=== PATIENT | female | born 1970 | race Caucasian/White ===

== ENCOUNTER 2020-05-29 11:12 | Outpatient (REF) | payer MEDICAID, SELFPAY ==
--- NOTE | 2020-05-29 | US_ITS ---
EXAMINATION:US pelvic complete, US transvaginal CLINICAL INFORMATION: Reason for Exam PMB COMPARISON: No priors available. LMP: Postmenopausal bleeding FINDINGS: UTERUS: The uterus is anteverted. Size: 6.1 x 3.3 x 3.7 cm. Uterine mass: There is no uterine mass. Cervix: Large complex hypoechoic cystic structure seen in the cervix 4.1 x 3.4 x 5.5 cm, concerning for possible complex nabothian cyst versus endometrioma versus Luke's duct cyst. Versus other lesions. This may require further investigation with cross-sectional imaging. Endometrium: No ultrasound evidence of endometrial lesion. endometrial thickness measures 0.4 cm ADNEXA: Normal Right ovary: Normal in size. Left ovary: Normal in size. FREE FLUID: Trace amount of free fluid. OTHER FINDINGS: None IMPRESSION: Large complex hypoechoic cystic mass near or at the cervix concerning for complex nabothian cyst versus Luke cyst versus endometrioma versus other lesions, it measure up to 5.5 cm. Consider further investigation with cross-sectional imaging preferably MRI with IV contrast, if not performed would recommend follow-up ultrasound in 6-12 weeks.
== END 2020-05-29 11:13 | disposition home or self-care (01) ==
LOC: HO.US 11:12
PROVIDERS: PCP Advanced Practice Midwife; Visit Provider Advanced Practice Midwife
DX: N95.0 Postmenopausal bleeding (principal)
CPT/HCPCS: 76830; 76856

== ENCOUNTER 2020-09-30 08:37 | Outpatient (REF) | payer MEDICAID, SELFPAY | END 2020-09-30 08:38 | disposition home or self-care (01) | LOC: HO.HMGCX 08:37 | PROVIDERS: Visit Provider General Practice | DX: Z13.89 Encounter for screening for other disorder (principal) ==

== ENCOUNTER 2020-10-18 13:32 | Outpatient (REF) | payer MEDICAID, SELFPAY ==
--- NOTE | ~2020-10-18 | MM_ITS ---
EXAMINATION: MM SCREENING DIGITAL BREAST TOMOSYNTHESIS, BILATERAL CLINICAL INFORMATION: Screening. Asymptomatic. Age 50. No known family history breast cancer. The lifetime risk of breast cancer based on the Tyrer-Cuzick Model is 6%. COMPARISON: None. TECHNIQUE: Digital breast tomosynthesis is performed in both the craniocaudal and mediolateral oblique views along with computer-aided detection (CAD). Synthesized 2D images are generated from the tomosynthesis. FINDINGS: The breasts are almost entirely fatty (ACR BI-RADS breast composition Category a). Background stromal markings are normal. There are no significant masses, abnormal calcifications, or other abnormalities. The axilla and skin contours are unremarkable. MM/MM tomosynthesis screening BI IMPRESSION: No mammographic evidence of malignancy. ASSESSMENT: BI-RADS 1: Negative RECOMMENDATION: Routine annual mammography screening. This patient's information was entered into a reminder system with a target due date for their next mammogram.
== END 2020-10-18 13:33 | disposition home or self-care (01) ==
LOC: HO.MAMMO 13:32
PROVIDERS: PCP General Practice; Visit Provider General Practice
DX: Z12.31 Encounter for screening mammogram for malignant neoplasm of breast (principal)
CPT/HCPCS: 77063; 77067

== ENCOUNTER 2020-10-21 10:28 | Outpatient (REF) | payer MEDICAID, SELFPAY ==
--- NOTE | ~2020-10-21 | US_ITS ---
EXAMINATION: US PELVIS COMPLETE. CLINICAL INFORMATION: Cystic mass. Question nabothian cysts versus Luke's cyst COMPARISON: None TECHNIQUE: Transabdominal and transvaginal ultrasound of the pelvis is performed. FINDINGS: On transabdominal ultrasound, the uterus is retroverted and retroflexed. The endometrial thickness is 0.2 cm. No focal lesion seen. There are echogenic cysts seen in the cervical-vaginal canal. It measures 5.1 x 4.5 x 3.1 cm. Previously it measured 4.1 x 3.4 x 5.5 cm. The right ovary measures 1.6 x 1.2 x 1.0 cm and volume 1.0 mL. It appears unremarkable. Previously the right ovary measured 2.2 x 1.0 x 1.7 cm The left ovary measures 2.7 x 1.3 x 1.3 cm and volume 2.4 mL. It appears unremarkable. Previously the left ovary measured 2.9 x 1.3 x 1.8 cm. There is no free fluid in the cul-de-sac. US/US pelvic complete IMPRESSION: 1. Unremarkable uterus. 2. Large echogenic cyst at the cervical-vaginal canal likely a Luke cyst. A large nabothian cyst cannot be excluded. An ectopic endometrioma is not excluded either. Recommend clinical correlation.
--- NOTE | ~2020-10-21 | US_ITS ---
EXAMINATION: US PELVIS COMPLETE. CLINICAL INFORMATION: Cystic mass. Question nabothian cysts versus Luke's cyst COMPARISON: None TECHNIQUE: Transabdominal and transvaginal ultrasound of the pelvis is performed. FINDINGS: On transabdominal ultrasound, the uterus is retroverted and retroflexed. The endometrial thickness is 0.2 cm. No focal lesion seen. There are echogenic cysts seen in the cervical-vaginal canal. It measures 5.1 x 4.5 x 3.1 cm. Previously it measured 4.1 x 3.4 x 5.5 cm. The right ovary measures 1.6 x 1.2 x 1.0 cm and volume 1.0 mL. It appears unremarkable. Previously the right ovary measured 2.2 x 1.0 x 1.7 cm The left ovary measures 2.7 x 1.3 x 1.3 cm and volume 2.4 mL. It appears unremarkable. Previously the left ovary measured 2.9 x 1.3 x 1.8 cm. There is no free fluid in the cul-de-sac. US/US transvaginal IMPRESSION: 1. Unremarkable uterus. 2. Large echogenic cyst at the cervical-vaginal canal likely a Luke cyst. A large nabothian cyst cannot be excluded. An ectopic endometrioma is not excluded either. Recommend clinical correlation.
== END 2020-10-21 10:29 | disposition home or self-care (01) ==
LOC: HO.US 10:28
PROVIDERS: Visit Provider General Practice
DX: Q52.4 Other congenital malformations of vagina (principal)
CPT/HCPCS: 76830; 76856

== ENCOUNTER 2021-05-16 09:03 | Outpatient (REF) | payer MEDICAID, SELFPAY ==
--- NOTE | ~2021-05-16 | XR_ITS ---
EXAMINATION: XR SHOULDER, LEFT CLINICAL INFORMATION: Left shoulder pain. COMPARISON: None. TECHNIQUE: AP external rotation, Grashey, scapular Y, and axillary views of the left shoulder. FINDINGS: No acute fracture or dislocation. Moderate acromioclavicular joint space narrowing with marginal osteophytes. Small glenohumeral marginal osteophytes. On the posteroinferior aspect of the glenoid, there is a chronic-appearing ossification measuring 1.4 cm which could represent an unfused osteophyte versus remote fracture fragment. No osseous erosion. XR/XR shoulder LT min 2V IMPRESSION: Moderate acromioclavicular and mild glenohumeral osteoarthritis. Ossification adjacent to the posteroinferior glenoid, which could represent an unfused osteophyte versus remote fracture fragment.
== END 2021-05-16 09:04 | disposition home or self-care (01) ==
LOC: HO.XRAY 09:03
PROVIDERS: Absent Provider General Practice; PCP General Practice; Visit Provider Family Medicine
DX: M25.512 Pain in left shoulder (principal)
CPT/HCPCS: 73030

== ENCOUNTER 2021-10-07 12:49 | Outpatient (REF) | payer MEDICAID, SELFPAY ==
[2021-10-07 14:08] LABS: COVID-19 Test Negative (Negative)
== END 2021-10-07 12:50 | disposition home or self-care (01) ==
LOC: HO.LAB 12:49
PROVIDERS: Visit Provider Internal Medicine
DX: Z20.822 Contact with and (suspected) exposure to COVID-19 (principal)
CPT/HCPCS: 87635; C9803

== ENCOUNTER 2022-10-29 10:04 | Outpatient (REF) | payer MEDICAID, SELFPAY ==
--- NOTE | ~2022-10-29 | XR_ITS ---
EXAMINATION: XR LUMBOSACRAL SPINE CLINICAL INFORMATION: Back pain COMPARISON: 02/17/2020 TECHNIQUE: Three views of the lumbosacral spine. FINDINGS: There is anatomic alignment of the lumbar vertebral bodies and posterior elements. Vertebral body heights are maintained. There is intervertebral disc space narrowing at L4-L5 and L5-S1. No acute fracture is seen. Suspected facet arthropathy of the lower lumbar spine. Sacroiliac joints appear intact. Scattered calcifications along the aorta. XR/XR lumbar spine 2-3V IMPRESSION: No acute findings identified. Degenerative changes of the lower lumbar spine.
== END 2022-10-29 10:05 | disposition home or self-care (01) ==
LOC: HO.XRAY 10:04
PROVIDERS: PCP General Practice; Visit Provider Emergency Medicine
DX: M54.16 Radiculopathy, lumbar region (principal)
CPT/HCPCS: 72100

== ENCOUNTER → 2022-12-14 08:29 | Outpatient (BNVA) | payer MEDICAID, SELFPAY | PROVIDERS: PCP General Practice; Visit Provider Anesthesiology | DX: M19.012 Primary osteoarthritis, left shoulder (principal); M16.12 Unilateral primary osteoarthritis, left hip; M17.12 Unilateral primary osteoarthritis, left knee; G89.4 Chronic pain syndrome | CPT/HCPCS: 99202 ==

== ENCOUNTER 2023-01-05 06:14 | Outpatient (REF) | payer MEDICAID, SELFPAY ==
--- NOTE | ~2023-01-05 | FL_ITS ---
EXAMINATION: XR FLUOROSCOPY WITH IMAGES CLINICAL INFORMATION: M19.012 - Primary osteoarthritis, left shoulder. Pain management. COMPARISON: Radiographs left shoulder 05/16/2021 TECHNIQUE: Fluoroscopy Supervised By: Dr. Quinn Obregon. Fluoroscopy Time: 0.1 minutes. Cumulative Dose: 4.49 mGy. DAP: 1.34 Gycm2. Images: 1. FINDINGS: There is spinal needle overlying the superior aspect humeral head. There is contrast along the superior rotator cuff. No visible vascular communication. Degenerative changes are present at the acromioclavicular joint. FL/FL guidance in treatment room IMPRESSION: - Fluoroscopy for pain management procedure.
== END 2023-01-05 06:15 | disposition home or self-care (01) ==
LOC: CF 06:14
PROVIDERS: Visit Provider Anesthesiology
DX: M19.012 Primary osteoarthritis, left shoulder (principal); M16.12 Unilateral primary osteoarthritis, left hip; M17.12 Unilateral primary osteoarthritis, left knee; G89.4 Chronic pain syndrome
CPT/HCPCS: 20610; J3301

== ENCOUNTER → 2023-02-01 12:50 | Outpatient (BNVA) | payer MEDICAID, SELFPAY | PROVIDERS: PCP General Practice; Visit Provider Anesthesiology | DX: M19.012 Primary osteoarthritis, left shoulder (principal); M16.12 Unilateral primary osteoarthritis, left hip; M17.12 Unilateral primary osteoarthritis, left knee; G89.4 Chronic pain syndrome | CPT/HCPCS: 99212 ==

== ENCOUNTER 2023-03-04 10:58 | Outpatient (REF) | payer MEDICAID, SELFPAY | END 2023-03-04 10:59 | disposition home or self-care (01) | LOC: HO.HOSX 10:58 | PROVIDERS: Visit Provider Orthopaedic Surgery | DX: Z13.89 Encounter for screening for other disorder (principal) ==

== ENCOUNTER 2023-12-10 10:45 | Outpatient (REF) | payer MEDICAID, SELFPAY ==
[2023-12-13 10:49] LABS: TS Negative Control Passed; TS Panel A 0; TS Panel B 2; TS Positive Control Passed; TSpotTB Negative (Negative)
== END 2023-12-10 10:46 | disposition home or self-care (01) ==
LOC: HO.HHCL 10:45
PROVIDERS: Visit Provider General Practice
DX: Z11.1 Encounter for screening for respiratory tuberculosis (principal)
CPT/HCPCS: 36415; 86481

== ENCOUNTER 2024-01-18 09:25 | Outpatient (REF) | payer MEDICAID, SELFPAY ==
--- NOTE | ~2024-01-18 | XR_ITS ---
EXAMINATION: XR FOOT, LEFT CLINICAL INFORMATION: Left heel pain x1 month. COMPARISON: None available. TECHNIQUE: AP, lateral, and oblique views of the left foot. FINDINGS: There is normal alignment. Joint spaces are maintained. No displaced fracture or dislocation. No bony erosions. No focal radiographic soft tissue swelling. Minimal Achilles enthesopathy. XR/XR foot LT min 3V IMPRESSION: No acute abnormality.
== END 2024-01-18 09:26 | disposition home or self-care (01) ==
LOC: HO.HHCX 09:25
PROVIDERS: Visit Provider General Practice
DX: M79.672 Pain in left foot (principal); G89.29 Other chronic pain
CPT/HCPCS: 73630

== ENCOUNTER 2024-12-12 09:34 | Outpatient (REF) | payer MEDICAID, SELFPAY ==
--- NOTE | ~2024-12-12 | XR_ITS ---
EXAMINATION: XR SHOULDER, LEFT CLINICAL INFORMATION: pain with motion COMPARISON: 05/16/2021. TECHNIQUE: AP external rotation, Grashey, scapular Y, and axillary views of the left shoulder. FINDINGS: Normal bone mineralization. No fracture, dislocation, or suspicious bone lesion. Normal alignment. The glenohumeral joint demonstrate mild degenerative arthritis. There is amorphous oval calcification in the inferior joint recess suggestive of loose body. The AC demonstrate minimal spurring. There is a type II acromion No undersurface spurring. The subacromial space is preserved. There is mild calcification of the infraspinatus tendon abutting the footplate insertion. Remainder of the soft tissue and bony structures appear normal. XR/XR shoulder LT min 2V IMPRESSION: 1. No fracture or dislocation. 2. Amorphous calcification in the inferior joint recess suspicious for loose body. 3. Mild infraspinatus calcification consistent with calcific tendinopathy. Electronically signed by: Gilberto Hamlin MD 12/12/2024 10:23 AM EDT
--- OUTSIDE RECORDS SUMMARY | 2024-12-12 10:33 | XMS_ITS | Encounter Summary ---
Author Organization [employer] [facility] Address [address] [place] [address] Care Team Providers Care Steward/Stewardess Third Class Name Role Phone Tejal Contreras MD Primary Care Provider [phone] Encounter Details Date Type Department Care Team (Latest Contact Info) Description 09/06/2020 Abstract [facility] CONVERSIONS Dental, Provider, DDS Social History Tobacco Use Types Packs/Day Years Used Date Smoking Tobacco: Never Assessed Comments Unknown Sex and Gender Information Value Date Recorded Sex Assigned at Female 06/15/2022 10:37 AM EDT Legal Sex Female 10:37 AM EDT Gender Identity Female 06/15/2022 10:37 AM EDT Sexual Orientation Straight 06/15/2022 10 :37 AM EDT documented as of this encounter Plan of Treatment Upcoming Encounters Date Type Department Care Team ( st Contact Info) Description 01/02/2025 3:00 PM EDT Office Visit [facility] ADULT DENTAL [address] [place] [address] Idris Lingaris [address] [place] [address] 01/26/2025 2:30 PM EDT Office Visit [facility] MEDICINE [address] [place] [address] Tejal Contreras MD [address] [place] [address] documented as of this encounter Visit Diagnoses Not on filedocumented in this encounter Care Teams Steward/Stewardess Third Class Relationship Specialty Start Date End Date Tejal Contreras MD [address] [place] [id number] PCP - General Family Medicine 06/20/20 documented as of this encounter
--- OUTSIDE RECORDS SUMMARY | 2024-12-12 10:33 | XMS_ITS | Encounter Summary ---
Author Organization [employer] [facility] Address [address] [place] [address] Care Team Providers Care Broke Handler Name Role Phone Tejal Contreras MD Primary Care Provider [phone] Reason for Visit * Reason Onset Date Comments Appointment 07/22/2022 Called pt to [facility] appt August recall w/ pcp. Pt agreed. Mailed appt reminder. Encounter Details Date Type Department Care Team (Late Contact Info) Description 07/22/2022 Telephone [facility] [address] [place] [address] Dedra Gotti, RN Appointment ( Called pt to schedule appt August recall w/ pcp. Pt agreed. Mailed appt reminder.) Social History Tobacco Use Types Packs/Day Years Used Date Smoking Tobacco: Never Assessed Comments Unknown Sex and Gender Information Value Date Recorded Sex Assigned at Female 06/15/2022 10:37 AM EDT Legal Sex Female 10:37 AM EDT Gender Identity Female 06/15/2022 10:37 AM EDT Sexual Orientation Straight 06/15/2022 10 :37 AM EDT documented as of this encounter Miscellaneous Notes * Telephone Encounter - Urszula Dumont - 07/23/2022 12:02 PM EST Called pt to schedule appt August w/ pcp. Pt agreed. Mailed appt reminder. documented in this encounter Plan of Treatment Upcoming Encounters Date Type Department Care Team (Late Contact Info) Description 01/02/2025 3:00 PM EDT Office Visit [facility] ADULT [facility]AL [address] [place], [place] [phone] Queenie Ling [address] [place], [place] [phone] 01/26/2025 2:30 PM EDT Office Visit [facility] MEDICINE [address] [place] [address] Tejal Contreras MD [address] [place], [place] [phone] documented as of this encounter Visit Diagnoses Not on filedocumented in this encounter Care Teams Broke Handler Relationship Specialty Start Date End Date Tejal Contreras MD [address] [place], [place] [phone] PCP - General Family Medicine 06/20/20 documented as of this encounter
--- OUTSIDE RECORDS SUMMARY | 2024-12-12 10:33 | XMS_ITS | Encounter Summary ---
Author Organization [employer] Address [address] [place] [address] Care Team Providers Care Shirring Machine Operator Name Role Phone Tejal Contreras MD Primary Care Provider [phone] Reason for Visit * Reason Comments Med Refill Encounter Details Date Type Department Care Team ([facility] st Contact Info) Description 04/26/2024 Refill [facility] MEDICINE [address] [place], [place] [phone] Tejal Contreras MD [address] [place], [place] [phone] Social History Tobacco Use Types Packs/Day Years Used Date Smoking Tobacco: Former Cigarettes Smokeless Tobacco: Never Comments:Quit smoking like 1 year ago Alcohol Use Standard Drinks/Week Comments Never 0 (1 standard drink = 0.6 oz pur e alcohol) Depression Answer Date Recorded Patient Health Questionnaire-9 Score 15 01/17/2024 Patient Health Questionnaire-9 Score 15 01/17/2024 Last PHQ-9: Questionnaire Data Not on file 0 01/17/2024 Housing Stability Answer Date Recorded What is your housing situation today? I have nic sweet 06/07/[address] you li ve. Do you have problems with any of the following? None of the above 06/07/2023 Food Insecurity Answer Date Recorded Within the past 12 months, y ou worried that your food would run out before you got money to buy more: Never True 06/07/2023 Within the past 12 months,th e food you bought just didn't last and you didn't have enough money to get more: Never True Transportation Answer Date Recorded In the past 12 months, has l ack of transportation kept you from medical appts, meetings, work or from getting things needed for daily living? Yes, it has kept me from medical appointments or getting medications. 12/10/2023 Utilities Answer Date Recorded In the past 12 months, has t he electric, gas, oil or water company threatened to shut off services in your home? No 06/07/2023 Depression Answer Date Recorded Patient Health Questionnaire-2 Score 5 01/17/2024 Comments Unknown Sex and Gender Information Value Date Recorded Sex Assigned at Female 06/15/2022 10:37 AM EDT Legal Sex Female 10:37 AM EDT Gender Identity Female 06/15/2022 10:37 AM EDT Sexual Orientation Straight 06/15/2022 10 :37 AM EDT documented as of this encounter Plan of Treatment Upcoming Encounters Date Type Department Care Team (Late st Contact Info) Description 01/02/2025 3:00 PM EDT Office Visit [facility] ADULT DENTAL [address] [place] [address] Queenie Ling [address] [place] [address] 01/26/2025 2:30 PM EDT Office Visit [facility] MEDICINE [address] [place] [address] Tejal Contreras MD [address] [place] [phone] documented as of this encounter Visit Diagnoses Not on filedocumented in this encounter Additional Health Concerns Assessment Noted Time PHQ-9 Depression Total Score: 15 024 3:58 PM EDT documented as of this encounter Care Teams Shirring Machine Operator Relationship Specialty Start Date End Date Tejal Contreras MD [address] [place] [phone] PCP - General Family Medicine 06/20/20 documented as of this encounter
--- OUTSIDE RECORDS SUMMARY | 2024-12-12 10:33 | XMS_ITS | Encounter Summary ---
Author Organization [employer] Address [address] [place] [address] Care Team Providers Care Mechanic Driver Name Role Phone Tejal Contreras MD Primary Care Provider [phone] Reason for Referral * Consultation (Urgent) - Pending Review Specialty Diagnoses / Procedures Referred By Liya casiano Referred To Contact Orthopaedic Surgery Diagnoses Chronic left shoulder pain Charbel Arce MD [address] [place] [address] Phone: tel: fax: Referral ID Status Reason Start Date Expiration Date Visits Requested Visits Authorized [id number] Pending Review Specialty Services Required 12/12/2024 12/12/2025 1 1 Reason for Visit * Reason Comments Arm Pain Shoulder Pain Encounter Details Date Type Department Care Team (Late st Contact Info) Description 12/12/2024 9:20 AM EDT Office Visit [facility] [address] [place], [place] [phone] Chronic left shoulder pain (Primary Dx); Primary hypertension Social History Tobacco Use Types Packs/Day Years Used Date Smoking Tobacco: Former Cigarettes Smokeless Tobacco: Never Comments:Quit smoking like 1 year ago Alcohol Use Standard Drinks/Week Comments Never 0 (1 standard drink = 0.6 oz pur e alcohol) Depression Answer Date Recorded Patient Health Questionnaire-9 Score 0 11/01/2024 Patient Health Questionnaire-9 Score 0 11/01/2024 Last PHQ-9: Questionnaire Data Not on file 0 11/01/2024 Housing Stability Answer Date Recorded What is [...] from getting things needed for daily living? No 11/01/2024 Utilities Answer Date Recorded In the past 12 months, has t he electric, gas, oil or water company threatened to shut off services in your home? No 06/07/2023 Depression Answer Date Recorded Patient Health Questionnaire-2 Score 0 11/01/2024 Internet Access Answer Date Recorded Internet Access Q1 Yes 11/01/2024 Internet Access Q2 Not on file 11/01/2024 Comments Unknown Sex and Gender Information Value Date Recorded Sex Assigned at Female 06/15/2022 10:37 AM EDT Legal Sex Female 10:37 AM EDT Gender Identity Female 06/15/2022 10:37 AM EDT Sexual Orientation Straight 06/15/2022 10 :37 AM EDT documented as of this encounter Last Filed Vital Signs Vital Sign Reading Time Taken Comments Blood Pressure 148/84 12/12/2024 8:50 AM EDT Pulse 78 12/12/2024 8:50 AM EDT Temperature 36.4 ??C (97.6 ??F) 12/12/2024 8:50 AM ED T Respiratory Rate 20 12/12/2024 8:50 AM EDT Oxygen Saturation 98% 12/12/2024 8:50 AM EDT Inhaled Oxygen Concentration - - Weight 85.3 kg (188 lb) 12/12/2024 8:50 AM EDT Height - - Body Mass Index 32.27 11/01/2024 3:47 PM EDT documented in this encounter Plan of Treatment Upcoming Encounters Date Type Department Care Team (Late st Contact Info) Description 01/02/2025 3:00 PM EDT Office Visit [facility] ADULT DENTAL [address] [place] [address] Idris Lingaris [address] [place] [address] 01/26/2025 2:30 PM EDT Office Visit [facility] MEDICINE [address] [place] [address] Tejal Contreras MD [address] [place] [address] Scheduled Referrals Name Type Priority Associated Diagnoses Order Schedule Referral to Orthopaedic Surgery Outpatient Referral Urgent Chronic left shoulder pain Expected: 12/12/2024 (Approximate), Expires: 12/12/2025 documented as of this encounter Visit Diagnoses Diagnosis Chronic left shoulder pain- Primary Pain in joint, shoulder region Primary hypertension Unspecified essential hypertension documented in this encounter Administered Medications Inactive Administered Medications - up to 3 most recent administrations Medication Order MAR Action Action Date Dose Rate Site ketorolac (Toradol) injection 30 mg 30 mg, Intramuscular, Once, On Tu12/12/24 at 0930, For 1 doseIndications:Chronic left shoulder pain Given 12/12/2024 9:35 AM EDT 30 mg Right Deltoid documented in this encounter Additional Health Concerns Assessment Noted Time PHQ-9 Depression Total Score: 0 11/02/19 25 3:48 PM EDT documented as of this encounter Care Teams Mechanic Driver Relationship Specialty Start Date End Date Tejal Contreras MD [address] [place] [address] PCP - General Family Medicine 06/20/20 documented as of this encounter
--- OUTSIDE RECORDS SUMMARY | 2024-12-12 10:33 | XMS_ITS | Encounter Summary ---
Demographics Address [address] [place] [address] Mobile Phone Home Phone Email Address Preferred Language es Marital Status Unknown Druze Affiliation Unknown Race White Ethnic Group or Author Organization [employer] Address [address] [place] [address] Care Team Providers Care Prosthodontist/Educator Name Role Phone Tejal Contreras MD Primary Care Provider [phone] Encounter Details Date Type Department Care Team (Late st Contact Info) Description 11/25/2023 Orders Only [facility] MEDICINE [address] [place] [address] Tejal Contreras MD [address] [place] [address] Anxiety (Primary Dx) Social History Tobacco Use Types Packs/Day Years Used Date Smoking Tobacco: Former Cigarettes Smokeless Tobacco: Never Comments:Quit smoking like 1 year ago Alcohol Use Standard Drinks/Week Comments Never 0 (1 standard drink = 0.6 oz pur e alcohol) Depression Answer Date Recorded Patient Health Questionnaire-9 Score 11 12/09/2022 Housing Stability Answer Date Recorded What is [...] getting things needed for daily living? No 09/21/2023 Utilities Answer Date Recorded In the past 12 months, has t he electric, gas, oil or water company threatened to shut off services in your home? No 06/07/2023 Depression Answer Date Recorded Patient Health Questionnaire-2 Score 6 12/09/2022 Comments Unknown Sex and Gender Information Value [...] Description 01/02/2025 3:00 PM EDT Office Visit [facility] ADULT DENTAL [address] [place] [address] Queenie Ling [address] [place] [address] 01/26/2025 2:30 PM EDT Office Visit [facility] MEDICINE [address] [place] [address] Tejal Contreras MD [address] [place] [address] documented as of this encounter Visit Diagnoses Diagnosis Anxiety- Primary Anxiety state, unspecified documented in this encounter Additional Health Concerns Assessment Noted Time PHQ-9 Depression Total Score: 11 023 3:09 PM EDT documented as of this encounter Care Teams Prosthodontist/Educator Relationship Specialty Start Date End Date Tejal Contreras MD [address] [place] [phone] PCP - General Family Medicine 06/20/20 documented as of this encounter
--- OUTSIDE RECORDS SUMMARY | 2024-12-12 10:33 | XMS_ITS | Encounter Summary ---
Author Organization [employer] Address [address] [address] Care Team Providers Care Acid Correction Hand Name Role Phone Tejal Contreras MD Primary Care Provider [phone] Reason for Visit * Reason Comments Med Refill Encounter Details Date Type Department Care Team ([facility] st Contact Info) Description 04/24/[address] [facility] ADULT DENTAL [address] [place], [place] [phone] Roman Delgado DDS [address] [place] [address] Social History Tobacco Use Types Packs/Day Years [...] encounter Miscellaneous Notes * Telephone Encounter - Roman Delgado DDS - 04/24/2024 2:41 PM EDT Pt. Needs to see the dentist . documented in this encounter Plan of Treatment Upcoming Encounters Date Type Department Care Team (Late st Contact Info) Description 01/02/2025 3:00 PM EDT Office Visit [facility] ADULT DENTAL [address] [place] [address] Queenie Ling [address] [place] [address] 01/26/2025 2:30 PM EDT Office Visit [facility] MEDICINE [address] [place] [address] Tejal Contreras MD [address] [place] [phone] documented as of this encounter Visit Diagnoses Not on filedocumented in this encounter Additional Health Concerns Assessment Noted Time PHQ-9 Depression Total Score: 15 024 3:58 PM EDT documented as of this encounter Care Teams Acid Correction Hand Relationship Specialty Start Date End Date Tejal Contreras MD [address] [place] [id number] PCP - General Family Medicine 06/20/20 documented as of this encounter
--- OUTSIDE RECORDS SUMMARY | 2024-12-12 10:33 | XMS_ITS | Clinical Summary ---
Demographics Address [address] [place] [address] Mobile Phone Home Phone Email Address Preferred Language es Marital Status Unknown Restorationism Affiliation Unknown Race White Ethnic Group or Author Organization [employer] Address [address] [place] [address] Care Team Providers Care Archives Specialist Name Role Phone Tejal Contreras MD Primary Care Provider [phone] Allergies Active Allergy Reactions Criticality Noted Date Comments Sulfa Antibiotics 01/12/2020 Other reaction(s): Facial swelling Medications * This document contains information received from the source organization and may not represent a complete record from that organization. Menthol-Methyl Salicylate (Thera-Gesic) 0.5-15 % cream use over painful joints twice a day as needed 05/15/20 22 Active Glucosamine-Chondr oit-Vit C-Mn (Glucosamine Chondroitin Complx) capsuleIndications :Fibromyalgia take one tablet daily for arthritis 90 capsule 3 09/14/19 23 Active fluticasone (Flonase) 50 MCG/ACT nasal sprayIndications:A llergic rhinitis, unspecified seasonality, unspecified trigger INSTILL 2 SPRAYS IN EACH NOSTRIL ONCE DAILY 48 g 3 10/24/19 23 Active lidocaine (Lidoderm) 5 % patch APPLY 1 PATCH TOPICALLY TO SKIN, LEAVE ON FOR 12 HOURS AND OFF FOR 12 HOURS DIRECTED 30 patch 5 12/15/19 23 Active triamcinolone (Kenalog) 0.1 % ointmentIndication s:Rash APPLY A THIN LAYER TO AFFECTED AREA(S) TWICE DAILY FOR 2 WEEKS 60 g 5 12/15/19 23 Active SUMAtriptan (Imitrex) 25 MG tabletIndications: Migraine without status migrainosus, not intractable, unspecified migraine type TAKE 1 TABLET BY MOUTH ONCE NEEDED FOR MIGRAINE 9 tablet 5 06/15/20 23 Active Diclofenac Sodium 1 % gel Apply 1 Application topically Once per day. 100 g 1 12/10/19 24 Active amitriptyline (Elavil) 50 MG tablet Take 1 tablet (50 mg) by mouth at bedtime. 90 tablet 3 01/17/20 24 025 Active clonazePAM (KlonoPIN) 0.5 MG tablet Take 1 tablet (0.5 mg) by mouth if needed each day for anxiety (trial period). 15 tablet 01/17/20 24 Active albuterol (2.5 MG/3ML) 0.083% nebulizer solutionIndication s:Mild persistent asthma without complication INHALE 1 AMPULE USING A NEBULIZER THREE TIMES DAILY NEEDED FOR COUGH, WHEEZING, OR SHORTNESS OF BREATH 90 mL 5 02/24/20 24 Active DULoxetine (Cymbalta) [address] capsule TAKE 1 CAPSULE BY MOUTH EVERY DAY. DO NOT BREAK, CRUSH, DISSOLVE OR CHEW. 90 capsule 3 08/10/20 24 Active hydroCHLOROthiazid e (HYDRODiuril) 25 MG tablet TAKE 1 TABLET BY MOUTH EVERY MORNING 90 tablet 3 10/09/19 25 Active naproxen (Naprosyn) 500 MG tabletIndications: Fibromyalgia Take 1 tablet (500 mg) by mouth with breakfast and with evening meal. 180 tablet 3 11/02/19 25 Active baclofen (Lioresal) 10 MG tabletIndications: Fibromyalgia Take 1 tablet (10 mg) by mouth 3 times daily. 270 tablet 3 11/02/19 25 Active omeprazole (PriLOSEC) [address] capsuleIndications :Gastroesophageal reflux disease without esophagitis TAKE 1 CAPSULE BY MOUTH EVERY DAY BEFORE SUPPER 90 capsule 3 11/09/19 25 Active rosuvastatin (Crestor) 10 MG tabletIndications: Other hyperlipidemia TAKE 1 TABLET BY MOUTH EVERY DAY 90 tablet 3 11/09/19 25 Active hydrOXYzine HCl (Atarax) 25 MG tabletIndications: Anxiety TAKE 1 TABLET BY MOUTH EVERY 8 HOURS NEEDED FOR ANXIETY OR FOR ITCHING 270 tablet 3 11/09/19 25 Active Ventolin HFA 108 (90 Base) MCG/ACT inhaler INHALE 2 PUFFS BY MOUTH FOUR TIMES DAILY NEEDED FOR COUGH, WHEEZING, OR SHORTNESS OF BREATH 18 g 3 11/11/19 25 Active benzonatate (Tessalon Perles) 100 MG capsule Take 1 capsule (100 mg) by mouth if needed in the morning, at noon, and at bedtime for cough for up to 7 days. Do not crush or chew. 20 capsule 11/14/19 25 025 Hospital, Clinic, or Other Facility Administered Medication Ordered Dose Route Frequency Start Date End Date Status ketorolac (Toradol) injection 30 mgIndications:Chronic left shoulder pain 30 mg IM Once 12/12/2024 12/12/2024 Ended Active Problems Problem Noted Date Diagnosed Date Moderate episode of recurrent major depressive d isorder 01/21/2024 Overview (01/21/2024): New/Additional Services needed PCP management PCP to prescribe new medication regimen to support pain management concerns Continue with current services (defined as services in the past 12 months) Behavioral Health Integration Plan Internal Follow up with [facility], note in system for SHABANA Sainz to be called for follow up consult Patient Self Plan Patient to utilize skills provided in intervention , Patient to reach out to [facility] team as needed, and Comply with medication Dahlia will continue to use coping strategies identified in session (Phone games, reaching out to family/friends and care of her plants. She will begin new medication and on next session we will explore if any changes on pain management and discuss strategies to further support pain management and depressive /anxiety sxs. KAREN (generalized anxiety disorder) 01/21/2024 Overview (11/13/2024): New/Additional Services needed PCP management PCP to prescribe new medication regimen to support pain management concerns Continue with current services (defined as services in the past 12 months) Behavioral Health Integration Plan Internal Follow up with [facility], note in system for Genie Sainz to be called for follow up consult Patient Self Plan Patient to utilize skills provided in intervention , Patient to reach out to [facility] team as needed, and Comply with medication Primary hypertension 09/27/2023 Assessment & Plan (11/03/2024 10:32 AM EDT): Continue hydrochlorothiazide 25mg daily Encouraged her to develop systems to make sure that she takes her medication daily Discussed the senior living risk of heart attack and stroke of elevated blood pressure Assessment & Plan (09/27/2023 11:04 AM EST): Increase hydrochlorothiazide from 12.5mg to 25mg daily Encouraged her to develop systems to make sure that she takes her medication daily Dental caries 05/07/2023 Dental abscess 05/07/2023 Blurry vision, bilateral 04/14/2023 Mild asthma 09/14/2022 Assessment & Plan (11/03/2024 10:31 AM EDT): Continue RODRICK prn via nebulizer and inhaler Not symptomatic currently Assessment & Plan (09/27/2023 11:05 AM EST): Continue RODRICK prn F/u with Sol[facility] about nebulizer Assessment & Plan (04/12/2023 9:55 AM EDT): Continue RODRICK prn Nebulizer ordered Assessment & Plan (09/14/2022 11:06 AM EST): Continue RODRICK prn Migraine headache 09/14/2022 Assessment & Plan (09/14/2022 11:07 AM EST): Continue prn Sumatriptan Hyperlipidemia 09/14/2022 Assessment & Plan (09/14/2022 11:07 AM EST): Continue Atorvastatin Disorder of intervertebral disc of lumbar spine 09/14/2022 Chronic left shoulder pain 09/14/2022 Assessment & Plan (04/12/2023 9:56 AM EDT): Continue followup with ortho Rosacea 09/04/2022 Assessment & Plan (12/11/2022 7:58 AM EDT): Continue Metrogel Avoid irritants Derm re-consult prn Assessment & Plan (09/14/2022 11:08 AM EST): Use Metro gel for 3 months, reassured her that although it is used for vaginal problems, can also be used for rosacea Assessment & Plan (09/04/2022 9:43 AM EST): -Metronidazole 0.075% Gel together with 1% Hydrocortisone, apply 2x daily. -.Discussed nature of condition to patient. -Given list of avoidants to patient. Obstructive sleep apnea syndrome 06/02/2021 Fibromyalgia 01/15/2020 Assessment & Plan (11/13/2024 3:49 PM EDT): Pt attended and participated in chronic pain group today - good engagement with group model of care - continue to use combination of non-pharmacological modalities to address pain - followup in one month Assessment & Plan (11/03/2024 10:34 AM EDT): Continue Cymbalta, amytriptiline, Baclofen Exercise as tolerated followup with ortho for shoulder pain Acupuncture recommended again Referral for chronic pain group Assessment & Plan (09/27/2023 11:04 AM EST): Continue Cymbalta, amytriptiline, Baclofen Exercise as tolerated followup with ortho for R shoulder Assessment & Plan (04/14/2023 9:06 AM EDT): Continue Cymbalta, amytriptiline, Baclofen Exercise as tolerated followup with ortho for R shoulder Assessment & Plan (12/11/2022 7:56 AM EDT): Continue Cymbalta, amytriptiline, Baclofen Exercise as tolerated followup with pain mgmt next week as scheduled Assessment & Plan (09/14/2022 11:07 AM EST): Continue Cymbalta, amytriptiline, Baclofen All meds transferred to [facility] Herniated lumbar intervertebral disc 01/15/2020 Assessment & Plan (12/11/2022 7:57 AM EDT): Trial acupuncture recommended Also to discuss interventions with pain mgmt Osteopenia 01/15/2020 Depressive disorder 01/12/2020 Assessment & Plan (09/27/2023 11:04 AM EST): Stays alone at home often, recommend scheduling things where she gets out of the house somewhat regularly Assessment & Plan (04/14/2023 9:06 AM EDT): Stays alone at home often, recommend scheduling things where she gets out of the house somewhat regularly Resolved Problems Problem Noted Date Diagnosed Date Resolved Date History of chronic pain 01/21/2024 03/3 08/2024 Overview (01/21/2024): New/Additional Services needed PCP management PCP to prescribe new medication regimen to support pain management concerns Continue with current services (defined as services in the past 12 months) Behavioral Health Integration Plan Internal Follow up with [facility], note in system for [facility] Natalee H to be called for follow up consult Patient Self Plan Patient to utilize skills provided in intervention , Patient to reach out to [facility] team as needed, and Comply with medication Dahlia will continue to use coping strategies identified in session (Phone games, reaching out to family/friends and care of her plants. She will begin new medication and on next session we will explore if any changes on pain management and discuss strategies to further support pain management and depressive /anxiety sxs. Healthy adult on routine physical examination 12/10/19 24 11/13/2024 Dental calculus 05/07/2023 11/13/2024 Anxiety 01/12/2020 11/13/2024 Assessment & Plan (01/19/2024 5:19 PM EDT): Explained the links between poor sleep, mood, and pain Explained to patient that Xanax efficacy was likely based on anxiolysis, not treating pain Explained risks of benzos (tolerance and addiction) and that they should not be used senior living, but rather for limited episodic use Trial Klonopin 0.5mg prn, followup with me in 2 months Seen by Natalee Wheatley for brief interview today, she will followup when pt reutns to see me Assessment & Plan (09/14/2022 11:07 AM EST): Continue Atarax prn Encounters Date Type Department Care Team Description 12/12/2024 9:20 AM EDT Office Visit [facility] WALK-IN [address] [address] Chronic left shoulder pain (Primary Dx); Primary hypertension 11/13/2024 11:00 AM EDT Office Visit [facility] MEDICINE [address] [place] [phone] Tejal Contreras MD Chronic left shoulder pain (Primary Dx); Fibromyalgia; Disorder of intervertebral disc of lumbar spine; KAREN (generalized anxiety disorder) 11/13/2024 Travel 11/10/2024 Refill [facility] [address] [place] [id number] Tejal Contreras MD 11/09/[address] [address] Tejal Contreras MD Mondays Chronic Pain Group 11/08/[address] [address] Tejal Contreras MD Gastroesophageal reflux disease without esophagitis; Other hyperlipidemia; Anxiety 11/01/2024 4:00 PM EDT Office Visit [address] [address] Tejal Contreras MD Acute pain of left shoulder (Primary Dx); Fibromyalgia; Chronic pain of both knees; Mild persistent asthma without complication; Dietary counseling; Exercise counseling; Class 1 obesity with serious comorbidity and body mass index (BMI) of 31.0 to 31.9 in adult, unspecified obesity type; Obstructive sleep apnea syndrome; Primary hypertension; Chronic left shoulder pain 11/01/2024 Travel 10/27/2024 Population Health Risk Score [facility] () [address] [phone] Provider, Population Health Generic 10/24/2024 Patient Outreach [address] [address] Tejal Contreras MD Pre-visit Planning ((Unable to reach for PVP screening and or LVM)) 10/08/[address] [phone] Tejal Contreras MD 09/15/[address] [address] Tejal Contreras MD telephone call from Last 3 Months Immunizations Name Administration Dates Next Due Influenza injectable quadrivalent preservative f ree 09/27/2023 Pfizer Covid-19 Vaccine 12+ 06/06/2021, Pfizer Covid-19 Vaccine 12+ Bivalent 11/03/2022 Pneumococcal Conjugate PCV 20 09/27/2023 Family History Medical History Relation Name Comments Hypertension Father Relation Name Status Comments Father Social History Tobacco Use Types Packs/Day Years Used Date Smoking Tobacco: Former Cigarettes Smokeless Tobacco: Never Tobacco Cessation:Counseling Given: Not Answered Comments:Quit smoking like 1 year ago Alcohol [...] Orientation Straight 06/15/2022 10 :37 AM EDT Last Filed Vital Signs Vital Sign Reading Time Taken Comments Blood Pressure 148/84 12/12/2024 8:50 AM EDT Pulse 78 12/12/2024 8:50 AM EDT Temperature 36.4 ??C (97.6 ??F) 12/12/2024 8:50 AM ED T Respiratory Rate 20 12/12/2024 8:50 AM EDT Oxygen Saturation 98% 12/12/2024 8:50 AM EDT Inhaled Oxygen Concentration - - Weight 85.3 kg (188 lb) 12/12/2024 8:50 AM EDT Height 162.6 cm (5' 4 ) 11/01/2024 3:47 PM EDT Body Mass Index 32.27 11/01/2024 3:47 PM EDT Plan of Treatment Upcoming Encounters Date Type Department Care Team (Late st Contact Info) Description 01/02/2025 3:00 PM EDT Office Visit [facility] ADULT DENTAL [address] [place] [address] Sushil, Queenie [address] [place] [address] 01/26/2025 2:30 PM EDT Office Visit [facility] MEDICINE [address] [place] [address] Tejal Contreras MD [address] [place] [address] Health Maintenance Due Date Last Done Comments CT Colonography 1970 Colonoscopy 1969 Colorectal Cancer Screening 1970 FIT DNA/Cologuard 1969 FIT 1970 FOBT 1970 Sigmoidoscopy 1969 Alcohol/Substance Use Screening 1981 Hepatitis C Screening 1987 DTaP/Tdap/Td Vaccines (1 - Tdap) 1988 Hepatitis B Vaccines (1 of 3 - 19+ 3-dose series) 1988 Zoster Vaccines (1 of 2) 2019 Dental Prophylaxis 03/07/2021 09/06/2020 Mammogram 10/18/2022 10/18/2020 Pap Smear 06/27/2023 06/27/2020 Dental X-Ray: Full Mouth 08/20/2023 08/19/2020 Dental Oral Exam 11/06/2023 05/07/2023, 08/19/2020 COVID-19 Vaccine (4 - 2023-2 5 season) 2024 11/03/2022, 06/06/2021, 04/25/2021 Influenza Vaccine (#1) 2024 09/27/2023 Dental X-Ray: Bitewings 05/08/2024 05/07/20, 08/19/2020 Lipid Panel 06/04/2025 06/04/2020 Cervical Cancer Screening 06/27/2025 HPV/Cotest 06/27/2025 06/27/2020 Depression Screening 11/01/2025 11/01/2024, 11/01/2024 SDOH Screening 11/01/2025 11/01/2024 Tobacco Screening 12/12/2025 12/12/2024 RSV Patients and Patients Aged 60 years or older (1 - 1-dose 75+ series) 2044 HIV Screening Completed 06/04/2020 Pneumococcal Vaccine: 50+ Years Completed 09/27/2023 HIB Vaccines Aged Out No longer eligi ble based on patient's age to complete this topic HPV Vaccines Aged Out No longer eligi ble based on patient's age to complete this topic Hepatitis A Vaccines Aged Out No long er eligible based on patient's age to complete this topic IPV Vaccines Aged Out No longer eligi ble based on patient's age to complete this topic Meningococcal Vaccine Aged Out No [place] eligible based on patient's age to complete this topic RSV under 20 months Aged Out No longe r eligible based on patient's age to complete this topic Rotavirus Vaccines Aged Out No longer eligible based on patient's age to complete this topic Procedures Procedure Name Priority Date/Time Associated Diagnosis Comments XR SHOULDER 2+ VIEWS LEFT Routine 12/12/2024 9:34 AM EDT Acute pain of left shoulder BITEWINGS - 4 RADIOGRAPHIC IMAGES Routine 05/07/2023 3:30 PM EDT PERIODIC ORAL EVALUATION - ESTABLISHED PATIENT Routine 05/07/2023 3:30 PM EDT MAMMOGRAM GENERIC Routine 10/18/2020 2:0 0 PM EST PROPHYLAXIS - ADULT Routine 09/06/2020 1 2:00 AM EST INTRAORAL - COMPLETE SERIES OF RADIOGRAPHIC IMAGES Routine 08/19/2020 12:00 AM EST HPV MRNA E6/E7 Routine 06/27/2020 10:28 AM EST THINPREP PAP Routine 06/27/2020 10:28 AM EST HIV 1/2 ANTIGEN/ANTIBODY, FOURTH GENERATION W/RFL Routine 06/04/2020 8:42 AM EDT LIPID PANEL, STANDARD Routine 06/04/2020 8:42 AM EDT from Last 3 Months or Most Recently Relevant to Health Maintenance Results * XR Shoulder 2+ Views Left (12/12/2024 9:34 AM EDT) Anatomical Region Laterality Modality Upper Extremities, Shoulder Left Radi ographic Imaging 12/12/2024 9:34 AM EDT Narrative 12/12/2024 10:25 AM EDT ?[facility] ?[address] ?[place] [address] ?XRay Report ? Signed ? Patient: Dahlia Del Angel ?MR#: [id number] ?? 55 ? : 1970 ?Acct:[id number] ? Age/Sex: 54 / F ?ADM Date: 12/12/24 ? Loc: HO.HHCX ? Attending Dr: Tejal Contreras MD ? Ordering Physician: Tejal Contreras ?? Date of Service: 12/12/24 ?? Procedure(s): XR shoulder LT min 2V ?? Accession Number(s): [id number] ? cc: Tejal Contreras ? EXAMINATION: ?? XR SHOULDER, LEFT ? CLINICAL INFORMATION: ?? pain with motion ? COMPARISON: ?? 05/16/2021. ? TECHNIQUE: ?? AP external rotation, Grashey, scapular Y, and axillary views of the ?? left shoulder. ? FINDINGS: ?? Normal bone mineralization. No fracture, dislocation, or suspicious ?? bone lesion. Normal alignment. ?? The glenohumeral joint demonstrate mild degenerative arthritis. There ?? is amorphous oval calcification in the inferior joint recess suggestive ?? of loose body. ?? The AC demonstrate minimal spurring. ?? There is a type II acromion No undersurface spurring. ?? The subacromial space is preserved. ?? There is mild calcification of the infraspinatus tendon abutting the ?? footplate insertion. ? Remainder of the soft tissue and bony structures appear normal. ? XR/XR shoulder LT min 2V ?? IMPRESSION: ?? 1. No fracture or dislocation. ?? 2. Amorphous calcification in the inferior joint recess suspicious for ?? loose body. ?? 3. Mild infraspinatus calcification consistent with calcific ?? tendinopathy. ? Electronically signed by: ??Gilberto Hamlin MD ??12/12/2024 10:23 AM EDT RP ? Dictated By: ?Gilberto Hamlin MD ? Signed By: ?<Electronically signed by Gilberto Hamlin MD in OV> ?12/12/24 1023 ? DD/ 0934 ? TD/TT: 12/12/24 0951 ? Network Control Supervisor: ? Procedure Note Genia Gibbs - 12/12/[address] [address] XRay Report Signed Patient: Fidel Del Angel#: [id number] 55 : 1970Acct:[id number] Age/Sex: 54 / FADM Date: 12/12/24 Loc: HO.HHCX Attending Dr: Tejal Contreras MD Ordering Physician: Tejal Contreras Date of Service: 12/12/24 Procedure(s): XR shoulder LT min 2V Accession Number(s): [id number] cc: Tejal Contreras EXAMINATION: XR SHOULDER, LEFT CLINICAL INFORMATION: pain with motion COMPARISON: 05/16/2021. TECHNIQUE: AP external rotation, Grashey, scapular Y, and axillary views of the left shoulder. FINDINGS: Normal bone mineralization. No fracture, dislocation, or suspicious bone lesion. Normal alignment. The glenohumeral joint demonstrate mild degenerative arthritis. There is amorphous oval calcification in the inferior joint recess suggestive of loose body. The AC demonstrate minimal spurring. There is a type II acromion No undersurface spurring. The subacromial space is preserved. There is mild calcification of the infraspinatus tendon abutting the footplate insertion. Remainder of the soft tissue and bony structures appear normal. XR/XR shoulder LT min 2V IMPRESSION: 1. No fracture or dislocation. 2. Amorphous calcification in the inferior joint recess suspicious for loose body. 3. Mild infraspinatus calcification consistent with calcific tendinopathy. Electronically signed by: Gilberto Hamlin MD 12/12/2024 10:23 AM EDT Dictated By: Gilberto Hamlin MD Signed By: <Electronically signed by Gilberto Hamlin MD in OV> 12/12/24 1023 DD/ 0934 TD/TT: 12/12/24 0951 Network Control Supervisor: Tejal Contreras MD IMG XR PROCEDURES Final Result * Mammography Report 1 (10/18/2020 2:00 PM EST) Anatomical Region Laterality Modality Breast Bilateral Mammography 10/18/2020 2:00 PM EST Narrative 10/22/2020 8:06 AM EST Refer to the Notes tab for result details [facility] Procedure: Mammography Report 1 Procedure Note Provider, Ermias, - 11/07/2022 Refer to the Notes tab for result details [facility] Procedure: Mammography Report 1 Tejal Contreras MD IMG BI PROCEDURES Final Result * THINPREP PAP (06/27/2020 10:28 AM EST) Clinical Information: SEE COMMENT [facility] Comment:None given COMMENT [facility] Comment: EXPLANATORY NOTE: ? The Pap is a screening test for cervical cancer. It is ?? not a diagnostic test and is subject to false negative ?? and false positive results. It is most reliable when a ?? satisfactory sample, regularly obtained, is submitted ?? with relevant clinical findings and history, and when ?? the Pap result is evaluated along with historic and ?? current clinical information. ?? Venereal Disease Control Head: SEE COMMENT [facility] Comment: DMM, CT(ASCP) CT screening location: [address] ??[address] Infection [facility] Comment: Shift in vaginal keyon suggestive of bacterial vaginosis. Interpretation/Resu lt: [facility] Comment:Negative for intraep ithelial lesion or malignancy. LMP: [facility] Comment:NONE GIVEN Prev. BX: NONE GIVEN [facility] Prev. PAP: SEE COMMENT [facility] Comment:NONE GIVEN SOURCE: [facility] Comment:None given Statement Of Adequacy: [facility] Comment: Satisfactory for evaluation. Endocervical/transformation zone component present. Age and/or menstrual status not provided 06/27/2020 10:2 8 AM EST [facility] ORDERABLES Final Result Performing Organization Address [facility] Number [facility] [address] * HPV mRNA E6/E7 (06/27/2020 10:28 AM EST) [facility] HPV nRNA E6/E7 Not Detected Not Detected [facility] Comment: This test was performed using the APTIMA HPV Assay ([employer] ?? This assay detects E6/E7 viral messenger RNA (mRNA) from 14 high-risk HPV types (16,18,31,33,35,39,45,51,52,56,58,59,66,68). ?? The analytical performance characteristics of this assay have been determined by [employer]. The modifications have not been cleared or approved by the FDA. This assay has been validated pursuant to the CLIA regulations and is used for clinical purposes. 06/27/2020 10:2 8 AM EST [facility] BLOOD ORDERABLES Abigail l Result Performing Organization Address [facility] de Phone Number [facility] Critical access hospital [facility] [address] * HIV 1/2 ANTIGEN/ANTIBODY,FOURTH GENERATION W/RFL (06/04/2020 8:42 AM EDT) [facility] HIV-1/2 ANTIGEN AND ANTIBODIES, 4TH GENERATION W/ REFLEX NON-REACT CORBIN NON-REACT CORBIN [facility] Comment: HIV-1 antigen and HIV-1/HIV-2 antibodies were not detected. There is no laboratory evidence of HIV infection. ?? PLEASE NOTE: This information has been disclosed to you from records whose confidentiality may be protected by state law. ??If your state requires such protection, then the state law prohibits you from making any further disclosure of the information without the specific written consent of the person to whom it pertains, or as otherwise permitted by law. A general authorization for the release of medical or other information is NOT sufficient for this purpose. ? For additional information please refer to http://education.[employer]/faq/GDI259 (This link is being provided for informational/ educational purposes only.) ? The performance of this assay has not been clinically validated in patients less than 2 years old. ?? 06/04/2020 8:42 AM EDT us David Enrique PIPE SMOKING MACHINE OPERATOR LAB BLOOD ORDERABLES Final Result [facility] [address] * (ABNORMAL) LIPID PANEL, STANDARD (06/04/2020 8:42 AM EDT) [facility] Non-HDL Cholesterol 226(H) <130 mg/dL (calc) [facility] Comment: Non-HDL level > or = 220 is very high and may indicate ?? genetic familial hypercholesterolemia (FH). Clinical ?? assessment and measurement of blood lipid levels ?? should be considered for all first-degree relatives ?? of patients with an FH diagnosis. ?? For patients with diabetes plus 1 major ASCVD risk ?? factor, treating to a non-HDL-C goal of <100 mg/dL ?? (LDL-C of <70 mg/dL) is considered a therapeutic ?? option. Cholesterol, Total 279(H) <200 mg/dL [facility] HDL Cholesterol 53 > OR = 50 mg/dL [facility] Chol/HDLC Ratio 5.3(H) <5.0 (calc) [facility] Triglycerides 233(H) <150 mg/dL [facility] Comment: ?? If a non-fasting specimen was collected, consider repeat triglyceride testing on a fasting specimen if clinically indicated. ?? Steve andrews al. J. of Clin. Lipidol. 2015;9:129-169. ?? LDL Cholesterol 183(H) mg/dL (calc) [facility] Comment: Reference range: <100 ?? Desirable range <100 mg/dL for primary prevention; ?? <70 mg/dL for patients with CHD or diabetic patients ?? with > or = 2 CHD risk factors. ?? LDL-C is now calculated using the Vinh-Prasad ?? calculation, which is a validated novel method providing ?? better accuracy than the Friedewald equation in the ?? estimation of LDL-C. ?? Vinh SS et al. CHIQUITA. 2013;310(19): 2286-3860 ?? (http://[employer]/faq/WGH952) Cholesterol, Total 279(H) <200 mg/dL [facility] LDL Cholesterol 183(H) mg/dL (calc) [facility] Comment: Reference range: <100 ?? Desirable range <100 mg/dL for primary prevention; ?? <70 mg/dL for patients with CHD or diabetic patients ?? with > or = 2 CHD risk factors. ?? LDL-C is now calculated using the Vinh-Prasad ?? calculation, which is a validated novel method providing ?? better accuracy than the Friedewald equation in the ?? estimation of LDL-C. ?? Vinh SS et al. CHIQUITA. 2013;310(19): 2199-3095 ?? (http://[employer]/faq/ZMD037) HDL Cholesterol 53 > OR = 50 mg/dL [facility] Triglycerides 233(H) <150 mg/dL [facility] Comment: ?? If a non-fasting specimen was collected, consider repeat triglyceride testing on a fasting specimen if clinically indicated. ?? Luna. J. of Clin. Lipidol. 2015;9:129-169. ?? Chol/HDLC Ratio 5.3(H) <5.0 (calc) [facility] Non-HDL Cholesterol 226(H) <130 mg/dL (calc) [facility] Comment: Non-HDL level > or = 220 is very high and may indicate ?? genetic familial hypercholesterolemia (FH). Clinical ?? assessment and measurement of blood lipid levels ?? should be considered for all first-degree relatives ?? of patients with an FH diagnosis. ?? For patients with diabetes plus 1 major ASCVD risk ?? factor, treating to a non-HDL-C goal of <100 mg/dL ?? (LDL-C of <70 mg/dL) is considered a therapeutic ?? option. 06/04/2020 8:42 AM EDT us David Enrique PIPE SMOKING MACHINE OPERATOR LAB BLOOD ORDERABLES Final Result [facility] Critical access hospital [address] from Last 3 Months or Most Recently Relevant to Health Maintenance Insurance [place] [address] [facility] C3 DENTAL-[facility] MEDICAID STAND ADULT Care Teams Archives Specialist Relationship Specialty Start Date End Date Tejal Contreras MD [address] [place] [id number] PCP - General Family Medicine 06/20/20
--- OUTSIDE RECORDS SUMMARY | 2024-12-12 10:33 | XMS_ITS | Encounter Summary ---
Demographics Address [address] [place] [address] Mobile Phone Home Phone Email Address Preferred Language es Marital Status Unknown Congregation Affiliation Unknown Race White Ethnic Group or Author Organization [employer] Address [address] [facility] [address] [place] [address] Care Team Providers Care Tower Supervisor Name Role Phone Tejal Contreras MD Primary Care Provider [phone] Encounter Details Date Type Department Care Team ([facility] st Contact Info) Description 07/04/2023 Orders Only [facility] [address] [place] [address] Tejal Contreras MD [address] [place] [address] Blurry vision (Primary Dx) Social History Tobacco Use Types [...] me from medical appointments or getting medications. 05/23/2023 Utilities Answer Date Recorded In the past [...] Description 01/02/2025 3:00 PM EDT Office Visit [facility] ADULT [facility] [address] [place] [address] Sushil Queenie [address] [place] [address] 01/26/2025 2:30 PM EDT Office Visit [facility] [address] [place] [address] Tejal Contreras MD [address] [place] [address] documented as of this encounter Visit Diagnoses Diagnosis Blurry vision- Primary Other specified visual disturbances documented in this encounter Additional Health Concerns Assessment Noted Time PHQ-9 Depression Total Score: 11 023 3:09 PM EDT documented as of this encounter Care Teams Tower Supervisor Relationship Specialty Start Date End Date Tejal Contreras MD [address] [place] [address] PCP - General Family Medicine 06/20/20 documented as of this encounter
== END 2024-12-12 09:35 | disposition home or self-care (01) ==
LOC: HO.HHCX 09:34
PROVIDERS: Visit Provider General Practice
DX: M25.512 Pain in left shoulder (principal)
CPT/HCPCS: 73030

== ENCOUNTER → 2024-12-12 09:34 | Outpatient (BNV) | payer MEDICAID, SELFPAY | PROVIDERS: Visit Provider Radiology Diagnostic Radiology | DX: M25.512 Pain in left shoulder (principal) | CPT/HCPCS: 73030 ==

== ENCOUNTER 2025-05-14 10:38 | Outpatient (REF) | payer MEDICAID, SELFPAY ==
--- OUTSIDE RECORDS SUMMARY | 2025-05-14 09:30 | XMS_ITS | Encounter Summary ---
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 Social History Tobacco Use Types Packs/Day Years Used Date Smoking Tobacco: Former Cigarettes Passive Smoke Exposure: Past Smokeless Tobacco: Never Comments:Quit smoking in Alcohol Use Standard Drinks/Week Comments Never 0 (1 standard drink = 0.6 oz pur e alcohol) Depression Answer Date Recorded Patient Health Questionnaire-9 Score 19 01/26/2025 Patient Health Questionnaire-9 Score 19 01/26/2025 Last PHQ-9: Questionnaire Data Not on file 0 01/26/2025 Housing Stability Answer Date Recorded What is [...] Answer Date Recorded Patient Health Questionnaire-2 Score 4 01/26/2025 Internet Access Answer Date Recorded Internet Access [...] Care Team (Late st Contact Info) Description 05/22/2025 1:30 PM EDT Office Visit [facility] [address] [place] [address] Roman Delgado, DDS [address] [place] [address] 05/31/2025 11:00 AM EDT Office Visit [facility] [address] [place] [address] Sushil, Queenie [address] [place] [address] 06/07/2025 11:00 AM EDT Office Visit [facility] [address] [place] [address] Sushil, Queenie [address] [place] [address] 09/19/2025 11:30 AM EST Office Visit [facility] [address] [place] [address] Flavio, Nora, OD [address] [place] [address] Scheduled Orders Name Type Priority Associated Diagnoses Orde r Schedule CBC auto differential Lab Routine Retinopathy Expected: 05/14/2025 (Approximate), Expires: 05/14/2026 Hemoglobin A1c Lab Routine Retinopathy Expected: 05/14/2025 (Approximate), Expires: 05/14/2026 OCT, Optic Nerve - OU - Both Eyes Ophthalmology Routine 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
--- OUTSIDE RECORDS SUMMARY | 2025-05-14 11:58 | XMS_ITS | Encounter Summary ---
Author Organization [employer] Address [address] [facility] [address] [place] [address] Care Team Providers Care Ortho Nurse Name Role Phone Tejal Contreras MD Primary Care Provider [phone] Reason for Visit * Reason Comments Med Refill Encounter Details Date Type Department Care Team ([facility] st Contact Info) Description 04/26/2024 Refill [facility] [address] [place], [place] [phone] Tejal Contreras MD 230 [place], [place] [phone] Social History Tobacco Use Types Packs/Day Years [...] Description 05/22/2025 1:30 PM EDT Office Visit [facility]ULT [facility] [address] [place] [address] Roman Delgado DDS [address] [place] [address] 05/31/2025 11:00 AM EDT Office Visit [facility] [address] [place] [address] SushilIdrisQueenie [address] [place] [address] 06/07/2025 11:00 AM EDT Office Visit [facility] [address] [place] [address] Sushil, Queenie [address] [place] [address] 09/19/2025 11:30 AM EST Office Visit [facility] [address] [place] [address] Nora Muniz, OD [address] [place] [address] documented as of this encounter Visit Diagnoses Not on filedocumented in this encounter Additional Health Concerns Assessment Noted Time PHQ-9 Depression Total Score: 15 024 3:58 PM EDT documented as of this encounter Care Teams Ortho Nurse Relationship Specialty Start Date End Date Tejal Contreras MD [address] [place] [address] PCP - General Family Medicine 06/20/20 documented as of this encounter
--- OUTSIDE RECORDS SUMMARY | 2025-05-14 11:58 | XMS_ITS | Encounter Summary ---
Author Organization [employer] Address [address] [facility] [address] 7[address] [place] [address] Care Team Providers Care Stevedore Dock Name Role Phone Tejal Contreras MD Primary Care Provider [phone] Encounter Details Date Type Department Care Team ([facility] st Contact Info) Description 11/25/[address] [facility] [address] [place] [address] Tejal Contreras MD [address] [place] [address] Anxiety (Primary Dx) Social History Tobacco Use [...] Description 05/22/2025 1:30 PM EDT Office Visit [facility] [address] [place] [address] Roman Delgado DDS [address] [place] [address] 05/31/2025 11:00 AM EDT Office Visit [facility] [address] [place] [address] Sushil, Queenie [address] [place] [address] 06/07/2025 11:00 AM EDT Office Visit [facility] [address] [place] [address] Sushil, Queenie [address] [place] [address] 09/19/2025 11:30 AM EST Office Visit [facility] [address] [place] [address] Flavio, Nora, OD [address] [place] [address] documented as of this encounter Visit Diagnoses Diagnosis Anxiety- Primary Anxiety state, unspecified documented in this encounter Additional Health Concerns Assessment Noted Time PHQ-9 Depression Total Score: 11 023 3:09 PM EDT documented as of this encounter Care Teams Stevedore Dock Relationship Specialty Start Date End Date Tejal Contreras MD [address] [place] [address] PCP - General Family Medicine 06/20/20 documented as of this encounter
--- OUTSIDE RECORDS SUMMARY | 2025-05-14 11:58 | XMS_ITS | Encounter Summary ---
Author Organization [facility] Address [address] [facility] [address] [place] [address] Phone Care Team Providers Care Digital Forensic Analyst Name Role Phone [facility], [facility] MD Primary Care Provider Encounter Details Date Type Department Care Team (Latest Contact Info) Description 02/02/2020 Ancillary Orders Virtual Department [address] [place] [address] System, Provider Not In, [facility] [address] [address] Intervertebral lumbar disc disorder with myelopathy, lumbar region Social History Tobacco Use Types Packs/Day Years Used Date Smoking Tobacco: Every Day Cigarettes Smokeless Tobacco: Never Alcohol Use Standard Drinks/Week Comments Not Currently 0 (1 standard drink = 0.6 oz pur e alcohol) Comments Unknown Sex and Gender Information Value Date Recorded Sex Assigned at Not on file Legal Sex Female 1:33 PM EDT Gender Identity Not on file Sexual Orientation Not on file documented as of this encounter Plan of Treatment Not on file documented as of this encounter Results * XR LUMBOSACRAL SPINE 4 OR MORE VIEWS (02/13/2020 3:44 PM EDT) Anatomical Region Laterality Modality L-spine Radiographic Judith ging 02/13/2020 3:47 PM EDT Impressions 02/13/2020 3:50 PM EDT Mild L4-5 and L5-S1 disc disease with facet arthropathy. POS - [id number] Narrative 02/13/2020 3:50 PM EDT HISTORY: As above. No trauma. COMPARISON: None. LUMBAR SPINE RADIOGRAPH FINDINGS: 6 views obtained. No acute fracture or malalignment. Mild L4-5 and L5-S1 disc space narrowing with facet arthropathy. No spondylolysis, compression fractures or destructive bone lesions. Moderate colonic stool volume. Procedure Note Bear Hernandez MD - 02/13/2020 HISTORY: As above. No trauma. COMPARISON: None. LUMBAR SPINE RADIOGRAPH FINDINGS: 6 views obtained. No acute fracture or malalignment. Mild L4-5 and L5-S1 disc spacenarrowing with facet arthropathy. No spondylolysis, compression fracturesor destructive bone lesions. Moderate colonic stool volume. IMPRESSION: Mild L4-5 and L5-S1 disc disease with facet arthropathy. 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 It is not the complete legal health record.[facility]
--- OUTSIDE RECORDS SUMMARY | 2025-05-14 11:58 | XMS_ITS | Encounter Summary ---
Demographics Address [address] [place] [address] Mobile Phone Home Phone Email Address .[employer] Preferred Language es Marital Status Unknown Yazidism Affiliation Unknown Race White Ethnic Group Unknown Author Organization [employer] Address [address] [place] [address] Care Team Providers Care Card Feeder Name Role Phone Tejal Contreras MD Primary Care Provider Encounter Details Date Type Department Care Team (Latest Contact Info) Description 05/14/2025 Travel Social History Tobacco Use Types Packs/Day Years [...] Description 05/22/2025 1:30 PM EDT Office Visit [facility] [address] [place] [address] Roman Delgado DDS [address] [place] [address] 05/31/2025 11:00 AM EDT Office Visit [facility] [address] [place] [address] Sushil, Queenie [address] [place] [address] 06/07/2025 11:00 AM EDT Office Visit [facility] [address] [place] [address] Sushil, Queenie [address] [place] [address] 09/19/2025 11:30 AM EST Office Visit [facility] [address] [place] [address] Flavio, Nora, OD [address] [place] [address] documented as of this encounter Visit Diagnoses Not on filedocumented in this encounter Additional Health Concerns Assessment Noted Time PHQ-9 Depression Total Score: 19 025 2:34 PM EDT documented as of this encounter Care Teams Card Feeder Relationship Specialty Start Date End Date Tejal Contreras MD [address] [place] [address] PCP - General Family Medicine 06/20/20 documented as of this encounter
--- OUTSIDE RECORDS SUMMARY | 2025-05-14 11:58 | XMS_ITS | Clinical Summary ---
Author Organization [facility] Address [address] [place] [address] Phone Care Team Providers Care Brush Sander Name Role Phone [facility], [facility] MD Primary Care Provider Allergies Active Allergy Reactions Criticality Noted Date Comments Sulfa (Sulfonamide Antibiotics) 02/2020 Social History Tobacco Use Types Packs/Day Years Used Date Smoking Tobacco: Every Day Cigarettes Smokeless Tobacco: Never Alcohol Use Standard Drinks/Week Comments Not Currently 0 (1 standard drink = 0.6 oz pur e alcohol) Education Answer Date Recorded Are you interested in more education? Not on alok e 12/11/2022 Are you concerned about learning? Not on file 12/11/2022 No 12/11/2022 No 12/11/2022 Digital Access Answer Date Recorded No 01/12/2023 No 01/12/2023 Reliable internet access at home? Not on file 01/12/2023 Device with a working camera? Not on file Comments Unknown Sex and Gender Information Value Date Recorded Sex Assigned at Not on file Legal Sex Female 1:33 PM EDT Gender Identity Not on file Sexual Orientation Not on file Last Filed Vital Signs Vital Sign Reading Time Taken Comments Blood Pressure 117/77 02/13/2020 2:44 PM EDT Pulse 99 02/13/2020 2:44 PM EDT Temperature 36.4 C (97.5 F) 02/13/2020 2:44 PM EDT Respiratory Rate 18 02/13/2020 2:44 PM EDT Oxygen Saturation 99% 02/13/2020 2:44 PM EDT Inhaled Oxygen Concentration - - Weight 73.5 kg (162 lb) 02/13/2020 2:44 PM EDT Height 162.6 cm (5' 4 ) 02/13/2020 2:44 PM EDT Body Mass Index 27.81 02/13/2020 2:44 PM EDT Plan of Treatment Not on file Medical Devices Not on file Insurance C3 ACO C3 ACO C3 ACO C3 [place] [address] [place] [address] [place] [address] C3 ACO C[employer]CO [address] [place] [address] [place] [address] C3 ACO Care Teams Brush Sander Relationship Specialty Start Date End Date [facility] [address] [place] [address] PCP - General 01/21/20 Additional Source Comments The information contained in this document represents components of the legal health record. It is not the complete legal health record.[facility]
--- OUTSIDE RECORDS SUMMARY | 2025-05-14 11:58 | XMS_ITS | Encounter Summary ---
Author Organization [employer] Address [address] [place] [address] Care Team Providers Care Leak Hunter Name Role Phone Tejal Contreras MD Primary Care Provider [phone] Encounter Details Date Type Department Care Team (Latest Contact Info) Description 09/06/2020 Abstract [facility] Dental, Provider, DDS Social History Tobacco [...] Description 05/22/2025 1:30 PM EDT Office Visit [facility]ULT [facility] [address] [place] [address] Roman Delgado DDS [address] [place] [address] 05/31/2025 11:00 AM EDT Office Visit [facility] [address] [place] [address] Idris Lingaris [address] [place] [address] 06/07/2025 11:00 AM EDT Office Visit [facility] [address] [place] [address] Idris Lingaris [address] [place] [address] 09/19/2025 11:30 AM EST Office Visit [facility] [address] [place], [place] [phone] Nora Muniz, KELL [address] [place] [address] documented as of this encounter Visit Diagnoses Not on filedocumented in this encounter Care Teams Leak Hunter Relationship Specialty Start Date End Date Tejal Contreras MD [address] [place] [address] PCP - General Family Medicine 06/20/20 documented as of this encounter
--- OUTSIDE RECORDS SUMMARY | 2025-05-14 11:58 | XMS_ITS | Clinical Summary ---
Author Organization [employer] Address [address] [place] [address] Care Team Providers Care Fuel Cell Battery Technician Name Role Phone Tejal Contreras MD Primary Care Provider [phone] Allergies Active Allergy Reactions Criticality Noted Date [...] at bedtime. 90 tablet 3 01/17/20 24 Active albuterol (2.5 MG/3ML) 0.083% [...] ITCHING 270 tablet 3 11/09/19 25 Active fluticasone-salmet trell (Advair) 115-21 MCG/ACT inhaler Inhale 2 puffs in the morning and at bedtime. Rinse mouth with water after use to reduce aftertaste and incidence of candidiasis. Do not swallow. 12 g 3 03/13/20 25 026 Active albuterol (Ventolin HFA) 108 (90 Base) MCG/ACT inhaler Inhale 2 puffs every 6 (six) hours if needed for wheezing. 18 g 3 03/13/20 25 Active Active Problems Problem Noted Date Diagnosed Date Moderate persistent asthma with exacerbation Assessment & Plan (03/13/2025 9:55 PM EDT): Asthma exacerbation Uncontrolled asthma Currently no wheezing ,per pt used RODRICK just prior coming here that helped w symptoms -RODRICK PRN Q 6 h -start Advair 115/21 -2 puff BID -advised to rinse mouth after use -to f w PCP in 4 weeks to monitor asthma symptoms -alarm signs and symptoms discussed ,pt knowns to return to clinic if not improving n which will need to consider PO steroids Crowded teeth 01/02/2025 Advanced periodontitis 01/02/2025 Dental calculus 01/02/2025 Missing teeth, acquired 01/02/2025 Retained dental root 01/02/2025 Moderate episode of recurren t major depressive disorder ([facility]) 01/21/2024 Overview (01/21/2024): New/Additional Services needed PCP management PCP to prescribe new medication regimen to support pain management concerns Continue with current services (defined as services in the past 12 months) Behavioral Health Integration Plan Internal Follow up with [facility], note in system for Genie Sainz to be called for follow up consult Patient Self Plan Patient to utilize skills provided in intervention , Patient to reach out to [facility] team as needed, and Comply with medication [...] Health Integration Plan Internal Follow up with [facility], note in system for Genie Sainz to be called for follow up consult Patient Self Plan Patient to utilize skills provided in intervention , Patient to reach out to [facility] team as needed, and Comply with medication Primary hypertension 09/27/2023 Assessment & Plan (03/13/2025 9:56 PM EDT): BP elevated today ,states not take BP med this am-encouraged pt to take every day Assessment & Plan (11/03/2024 10:32 AM EDT): Continue hydrochlorothiazide 25mg daily Encouraged her to develop systems to make sure that she takes her medication daily Discussed the long-term risk of heart attack and stroke of elevated blood pressure Assessment & Plan (09/27/2023 11:04 AM EST): Increase hydrochlorothiazide from 12.5mg to 25mg daily Encouraged her to develop systems to make sure that she takes her medication daily Dental caries 05/07/2023 Blurry vision, bilateral 04/14/2023 Mild asthma [...] Cymbalta, amytriptiline, Baclofen All meds transferred to [facility] Herniated lumbar intervertebral disc 01/15/2020 Assessment & Plan (12/11/2022 7:57 AM EDT): Trial acupuncture recommended Also to discuss interventions with pain mgmt Osteopenia 01/15/2020 Resolved Problems Problem Noted Date Diagnosed Date Resolved Date History of chronic pain 01/21/2024 03/3 08/2024 Overview (01/21/2024): New/Additional Services needed PCP management PCP to prescribe new medication regimen to support pain management concerns Continue with current services (defined as services in the past 12 months) Behavioral Health Integration Plan Internal Follow up with [facility], note in system for Genie Sainz to be called for follow up consult Patient Self Plan Patient to utilize skills provided in intervention , Patient to reach out to [facility] team as needed, and Comply with medication [...] 12/10/19 24 11/13/2024 Dental calculus 05/07/2023 11/13/2024 Dental abscess 05/07/2023 01/30/2025 Anxiety 01/12/2020 11/13/2024 Assessment & Plan (01/19/2024 5:19 PM EDT): Explained the links between poor sleep, mood, and pain Explained to patient that Xanax efficacy was likely based on anxiolysis, not treating pain Explained risks of benzos (tolerance and addiction) and that they should not be used extermination supervisor, but rather for limited episodic use Trial Klonopin 0.5mg prn, followup with me in 2 months Seen by Natalee Wheatley for brief interview today, she will followup when pt reutns to see me Assessment & Plan (09/14/2022 11:07 AM EST): Continue Atarax prn Depressive disorder 01/12/2020 01/31/20 Assessment & Plan (09/27/2023 11:04 AM EST): Stays alone at home often, recommend scheduling things where she gets out of the house somewhat regularly Assessment & Plan (04/14/2023 9:06 AM EDT): Stays alone at home often, recommend scheduling things where she gets out of the house somewhat regularly Encounters Date Type Department Care Team Description 05/14/2025 9:30 AM EDT Office Visit [facility] OPT[facility] [address] [place] [address] Flavio, Nora, OD Retinopathy (Primary Dx); Presbyopia; 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 05/14/2025 Travel 03/19/2025 Travel 03/13/2025 9:20 AM EDT Office Visit [facility] [address] [place] [address] Rosa Mena MD Moderate persistent asthma with exacerbation (Primary Dx); Cough, unspecified type; Primary hypertension 03/13/2025 Travel 02/26/2025 Travel 02/12/2025 Telephone [facility] [address] [place] [address] Tejal Contreras MD Nurse Triage from Last 3 Months Immunizations Immunization Administration Dates Next Due Influenza injectable quadrivalent preservative f ree 09/27/2023 Pfizer Covid-19 Vaccine 12+ 06/06/2021, Pfizer Covid-19 Vaccine 12+ Bivalent 11/03/2022 Pneumococcal Conjugate PCV 20 09/27/2023 Family History Medical History Relation Name Comments Hypertension Father Relation Name Status Comments Father Social History Tobacco Use Types Packs/Day Years Used Date Smoking Tobacco: Former Cigarettes Passive Smoke Exposure: Past Smokeless Tobacco: Never Tobacco Cessation:Counseling Given: Not Answered Comments:Quit smoking in 2022 Alcohol Use Standard Drinks/Week Comments Never 0 (1 standard drink = 0.6 oz pur e alcohol) Depression Answer Date Recorded Patient Health Questionnaire-9 Score 01/26/2025 Patient Health Questionnaire-9 Score 01/26/2025 Last PHQ-9: Questionnaire Data Not on [...] Sign Reading Time Taken Comments Blood Pressure 126/74 05/04/2025 8:49 AM EDT Pulse 85 03/13/2025 9:17 AM EDT Temperature 36.3 C (97.3 F) 03/13/2025 9:17 AM EDT Respiratory Rate 20 03/13/2025 9:17 AM EDT Oxygen Saturation 99% 03/13/2025 9:17 AM EDT Inhaled Oxygen Concentration - - Weight 85.5 kg (188 lb 6.4 oz) 03/13/2025 9:17 A M EDT Height 162.6 cm (5' 4 ) 03/13/2025 9:17 AM EDT Body Mass Index 32.34 03/13/2025 9:17 AM EDT Plan of Treatment Upcoming Encounters Date Type Department Care Team ([facility] st Contact Info) Description 05/22/2025 1:30 PM EDT Office Visit [facility] [address] [place] [address] MichelleRoman henriquez, DDS [address] [place] [address] 05/31/2025 11:00 AM EDT Office Visit [facility] [address] [facility] [address] Sushil Queenie [address] [place] [address] 06/07/2025 11:00 AM EDT Office Visit [facility] [address] [facility] [address] Sushil, Queenie [address] [facility] [address] 09/19/2025 11:30 AM EST Office Visit [facility] [address] [place] [address] Flavio, Nora, OD [address] [place] [address] Health Maintenance Due Date Last Done Comments CT Colonography 1969 Colonoscopy 1969 Colorectal Cancer Screening 1969 FIT DNA/Cologuard 1969 FIT 1969 FOBT 1969 Sigmoidoscopy 1969 Disability Screening 1969 Alcohol/Substance Use Screening 1981 Hepatitis C Screening 1987 DTaP/Tdap/Td Vaccines (1 - Tdap) 1988 Hepatitis B Vaccines (1 of 3 - 19+ 3-dose series) 1988 Zoster Vaccines (1 of 2) 2019 Mammogram 10/18/2022 10/18/2020 COVID-19 Vaccine (4 - 2024-2 6 season) 2025 11/03/2022, 06/06/2021, 04/25/2021 Influenza Vaccine (#1) 2025 09/27/2023 Lipid Panel 06/04/2025 06/04/2020 Cervical Cancer Screening 06/27/2025 HPV/Cotest 06/27/2025 06/27/2020 Pap Smear 06/27/2025 06/27/2020 Dental Oral Exam 07/06/2025 01/02/2025, 05/07/2023, 08/19/2020 Dental Prophylaxis 07/06/2025 01/02/2025, 09/06/2020 Depression Monitoring 07/28/2025 01/26/2025 , 01/26/2025 SDOH Screening 11/01/2025 11/01/2024 Dental X-Ray: Bitewings 01/03/2026 01/03/20 25, 05/07/2023, 08/19/2020 Tobacco Screening 05/14/2026 05/14/2025 Dental X-Ray: Full Mouth 01/04/2028 025, 08/19/2020 RSV Patients and Patients Aged 60 years [...] patient's age to complete this topic Meningococcal B Vaccine Aged Out No l onger eligible based on patient's age to complete [...] Procedure Name Priority Date/Time Associated Diagnosis Comments POCT INFLUENZA B (ID NOW RAPID MOLECULAR) Routine 03/13/2025 9:31 AM EDT Cough, unspecified type POCT INFLUENZA A (ID NOW RAPID MOLECULAR) Routine 03/13/2025 9:31 AM EDT Cough, unspecified type POCT RAPID COVID ANTIGEN Routine 03/13/2025 9:21 AM EDT Cough, unspecified type PROPHYLAXIS - ADULT Routine 01/02/2025 3 :00 PM EDT Crowded teeth Advanced periodontitis Dental calculus Missing teeth, acquired INTRAORAL - COMPLETE SERIES OF RADIOGRAPHIC IMAGES Routine 01/02/2025 3:00 PM EDT Crowded teeth Advanced periodontitis Dental calculus Missing teeth, acquired PERIODIC ORAL EVALUATION - ESTABLISHED PATIENT Routine 01/02/2025 3:00 PM EDT MAMMOGRAM GENERIC Routine 10/18/2020 2:0 0 PM EST HPV MRNA E6/E7 Routine 06/27/2020 10:28 AM EST THINPREP PAP Routine 06/27/2020 10:28 AM EST HIV 1/2 ANTIGEN/ANTIBODY, FOURTH GENERATION W/RFL Routine 06/04/2020 8:42 AM EDT LIPID PANEL, STANDARD Routine 06/04/2020 8:42 AM EDT from Last 3 Months or Most Recently Relevant to Health Maintenance Results * POCT Rapid Influenza B NIXON ID NOW (03/13/2025 9:31 AM EDT) Influenza B Negative Negative, Indeterminate [facility] QC Media Lot # [id number] [facility] Lot# Expiration Date [facility] Swab 03/13/2025 9:31 AM EDT Rosa Lorenzo MD POINT OF CARE ABI T ENTER/EDIT ORDERABLES Final Result [facility] [address] [place] [phone] * POCT Rapid Influenza A NIXON ID NOW (03/13/2025 9:31 AM EDT) Influenza A Negative Negative, Indeterminate [facility] QC Media Lot # [id number] [facility] Lot# Expiration Date [facility] Swab 03/13/2025 9:31 AM EDT Rosa Lorenzo MD POINT OF CARE ABI T ENTER/EDIT ORDERABLES Final Result [facility] [address] [place] [phone] * POCT Rapid Covid-19 BinaxNOW (03/13/2025 9:21 AM EDT) Pathologist [facility] Rapid COVID Ag Negative QC Media Lot # [id number] Lot# Expiration Date [id number] Blood 03/13/2025 9:2 1 AM EDT Rosa Lorenzo MD POINT OF CARE ABI T ENTER/EDIT ORDERABLES Final Result * Mammography Report 1 (10/18/2020 2:00 PM EST) Anatomical Region Laterality Modality Breast Bilateral Mammography 10/18/2020 2:00 PM EST Narrative 10/22/2020 8:06 AM EST Refer to the Notes tab for result details [facility] Procedure: Mammography Report 1 Procedure Note ProviderErmias MD - 11/07/2022 Refer to the Notes tab for result details [facility] Procedure: Mammography Report 1 Tejal Contreras MD IMG BI PROCEDURES Final Result * THINPREP PAP (06/27/2020 10:28 AM EST) Pathologist [facility] Clinical Information: SEE COMMENT [facility] Comment:None given COMMENT SEE COMMENT [facility] Comment: EXPLANATORY NOTE: The Pap is a screening test for cervical cancer. It is not a diagnostic test and is subject to false negative and false positive results. It is most reliable when a satisfactory sample, regularly obtained, is submitted with relevant clinical findings and history, and when the Pap result is evaluated along with historic and current clinical information. Aircraft Engine Cylinder Mechanic: SEE COMMENT [facility] Comment: DMM, CT(ASCP) CT screening location: [address] [address] Infection SEE COMMENT [facility] [...] not provided 06/27/2020 10:2 8 AM EST Zulema Dior [facility] PATHOLOGY ORDERABLES Final Result Performing Organization Address [facility] Phone Number [facility] [address] * HPV mRNA E6/E7 (06/27/2020 10:28 AM EST) Pathologist [facility] HPV nRNA E6/E7 Not Detected Not Detected [facility] Comment: This test was performed using the APTIMA HPV Assay ([employer] This assay detects E6/E7 viral messenger RNA (mRNA) from 14 high-risk HPV types (16,18,31,33,35,39,45,51,52,56,58,59,66,68). The analytical performance characteristics of this assay have been determined by [employer]. The modifications have not been cleared or approved by the FDA. This assay has been validated pursuant to the CLIA regulations and is used for clinical purposes. 06/27/2020 10:2 8 AM EST Zulema Dior [facility] LAB BLOOD ORDERABLES Abigail l Result Performing Organization Address [facility] de Phone Number [facility] [address] * HIV 1/2 ANTIGEN/ANTIBODY,FOURTH GENERATION W/RFL (06/04/2020 8:42 AM EDT) Pathologist [facility] HIV-1/2 ANTIGEN AND ANTIBODIES, 4TH GENERATION W/ REFLEX NON-REACT CORBIN NON-REACT CORBIN [facility] Comment: HIV-1 antigen and HIV-1/HIV-2 antibodies were not detected. There is no laboratory evidence of HIV infection. PLEASE NOTE: This information has been disclosed to you from records whose confidentiality may be protected by state law. If your state requires such protection, then the state law prohibits you from making any further disclosure of the information without the specific written consent of the person to whom it pertains, or as otherwise permitted by law. A general authorization for the release of medical or other information is NOT sufficient for this purpose. For additional information please refer to http://education.[employer]/faq/KIV970 (This link is being provided for informational/ educational purposes only.) The performance of this assay has not been clinically validated in patients less than 2 years old. 06/04/2020 8:42 AM EDT David Enrique [facility] LAB BLOOD ORDERABLES Final Result [facility] [address] * (ABNORMAL) LIPID PANEL, STANDARD (06/04/2020 8:42 AM EDT) Non-HDL Cholesterol 226(H) <130 mg/dL (calc) [facility] Comment: Non-HDL level > or = 220 is very high and may indicate genetic familial hypercholesterolemia (FH). Clinical assessment and measurement of blood lipid levels should be considered for all first-degree relatives of patients with an FH diagnosis. For patients with diabetes plus 1 major ASCVD risk factor, treating to a non-HDL-C goal of <100 mg/dL (LDL-C of <70 mg/dL) is considered a therapeutic option. Cholesterol, Total 279(H) <200 mg/dL [facility] HDL Cholesterol 53 > OR = 50 mg/dL [facility] Chol/HDLC Ratio 5.3(H) <5.0 (calc) [facility] Triglycerides 233(H) <150 mg/dL [facility] Comment: If a non-fasting specimen was collected, consider repeat triglyceride testing on a fasting specimen if clinically indicated. Steve et al. J. of Clin. Lipidol. 2015;9:129-169. LDL Cholesterol 183(H) mg/dL (calc) [facility] Comment: Reference range: <100 Desirable range <100 mg/dL for primary prevention; <70 mg/dL for patients with CHD or diabetic patients with > or = 2 CHD risk factors. LDL-C is now calculated using the Vinh-Prasad calculation, which is a validated novel method providing better accuracy than the Friedewald equation in the estimation of LDL-C. Vinh SS et al. CHIQUITA. 2013;310(19): 7704-9774 (http://education.[employer]/faq/ILT040) Cholesterol, Total 279(H) <200 mg/dL [facility] LDL Cholesterol 183(H) mg/dL (calc) [facility] Comment: Reference range: <100 Desirable range <100 mg/dL for primary prevention; <70 mg/dL for patients with CHD or diabetic patients with > or = 2 CHD risk factors. LDL-C is now calculated using the Vinh-Prasad calculation, which is a validated novel method providing better accuracy than the Friedewald equation in the estimation of LDL-C. Vinh SS et al. CHIQUITA. 2013;310(19): 9524-8389 (http://education.[employer]/faq/DRV011) HDL Cholesterol 53 > OR = 50 mg/dL [facility] Triglycerides 233(H) <150 mg/dL [facility] Comment: If a non-fasting specimen was collected, consider repeat triglyceride testing on a fasting specimen if clinically indicated. Steve et al. J. of Clin. Lipidol. 2015;9:129-169. Chol/HDLC Ratio 5.3(H) <5.0 (calc) [facility] Non-HDL Cholesterol 226(H) <130 mg/dL (calc) [facility] Comment: Non-HDL level > or = 220 is very high and may indicate genetic familial hypercholesterolemia (FH). Clinical assessment and measurement of blood lipid levels should be considered for all first-degree relatives of patients with an FH diagnosis. For patients with diabetes plus 1 major ASCVD risk factor, treating to a non-HDL-C goal of <100 mg/dL (LDL-C of <70 mg/dL) is considered a therapeutic option. 06/04/2020 8:42 AM EDT us David Chung Enrique KRAFT MILL OPERATOR LAB BLOOD ORDERABLES Final Result [facility] [address] from Last 3 Months or Most Recently Relevant to Health Maintenance [facility] Care Teams Fuel Cell Battery Technician Relationship Specialty Start Date End Date Tejal Contreras MD [address] [place] [id number] PCP - General Family Medicine 06/20/20
--- OUTSIDE RECORDS SUMMARY | 2025-05-14 11:58 | XMS_ITS | Encounter Summary ---
Author Organization [employer] Address [address] [place] [address] Care Team Providers Care Elevator Operator Service Name Role Phone Tejal Contreras MD Primary Care Provider Reason for Visit * Reason Comments Med Refill Encounter Details Date Type Department Care Team (Late st Contact Info) Description 04/24/2024 Refill [facility] [address] [place] [address] Roman Delgado DDS [address] [place] [address] Social History Tobacco Use Types Packs/Day Years [...] Description 05/22/2025 1:30 PM EDT Office Visit [facility] [address] [place] [address] Roman Delgado DDS [address] [place] [address] 05/31/2025 11:00 AM EDT Office Visit [facility] [address] [place] [address] Sushil, Queenie [address] [place] [address] 06/07/2025 11:00 AM EDT Office Visit [facility] [address] [place] [address] Sushil, Queenie [address] [place] [address] 09/19/2025 11:30 AM EST Office Visit [facility] [address] [place] [address] Nora Muniz, OD [address] [place] [address] documented as of this encounter Visit Diagnoses Not on filedocumented in this encounter Additional Health Concerns Assessment Noted Time PHQ-9 Depression Total Score: 15 024 3:58 PM EDT documented as of this encounter Care Teams Elevator Operator Service Relationship Specialty Start Date End Date Tejal Contreras MD [address] [place] [address] PCP - General Family Medicine 06/20/20 documented as of this encounter
--- OUTSIDE RECORDS SUMMARY | 2025-05-14 11:58 | XMS_ITS | Encounter Summary ---
Author Organization [employer] Address [address] [place] [address] Care Team Providers Care Senior Electrical Project Manager Name Role Phone Tejal Contreras MD Primary Care Provider [phone] Encounter Details Date Type Department Care Team ([facility] st Contact Info) Description 07/04/2023 Orders Only [facility] [address] [place] [address] Tejal Contreras MD [address] [place] [address] Blurry vision (Primary Dx) Social History Tobacco [...] Description 05/22/2025 1:30 PM EDT Office Visit [facility] AD[facility] [address] [place] [address] Roman Delgado, NELLS [address] [place] [address] 05/31/2025 11:00 AM EDT Office Visit [facility] [address] [place] [address] Sushil, Queenie [address] [place] [address] 06/07/2025 11:00 AM EDT Office Visit [facility] [address] [place] [address] Sushil, Queenie [address] [place] [address] 09/19/2025 11:30 AM EST Office Visit [facility] [address] [place] [address] Flavio, Nora, OD [address] [place] [address] documented as of this encounter Visit Diagnoses Diagnosis Blurry vision- Primary Other specified visual disturbances documented in this encounter Additional Health Concerns Assessment Noted Time PHQ-9 Depression Total Score: 11 023 3:09 PM EDT documented as of this encounter Care Teams Senior Electrical Project Manager Relationship Specialty Start Date End Date Tejal Contreras MD [address] [place] [address] PCP - General Family Medicine 06/20/20 documented as of this encounter
[2025-05-14 13:23] LABS: MANUAL DIFF FLAG NO
[2025-05-14 13:34] LABS: Hematocrit 39.9 % (37.0-47.0); Hemoglobin 12.7 g/dl (12.0-16.0); Imm Gran Abs Auto 0.02 X10*3/uL (0.00-0.03); Imm Gran Pct Auto 0.3 % (0.0-0.4); Lymphocytes Absolute Auto 2.3 X10*3/uL (1.2-4.9); Mean Corpuscular HGB Conc 31.8 g/dl (31.0-35.0); Mean Corpuscular Hemoglobin 27.5 pg (27.0-33.0); Mean Corpuscular Volume 86.6 fL (80.0-98.0); NRBC Abs Auto 0.000 X10*3/uL (0.0-0.012); NRBC Pct Auto 0.0 /100WBC (0.0-0.2); Platelet Count 417 X10*3/uL (160-400); Red Blood Count 4.61 X10*6/uL (4.20-5.50); White Blood Count 8.0 X10*3/uL (4.8-10.8)
[2025-05-15 05:18] LABS: ~HepC Num1 0.07 S/CO (0.00-0.79); ~Hepatitis C Antibody Nonreactive (Nonreactive)
== END 2025-05-14 10:39 | disposition home or self-care (01) ==
LOC: HO.HHCL 10:38
PROVIDERS: PCP General Practice; Visit Provider Optometrist
DX: Z11.59 Encounter for screening for other viral diseases (principal); Z11.9 Encounter for screening for infectious and parasitic diseases, unspecified; H35.00 Unspecified background retinopathy
CPT/HCPCS: 36415; 83036; 85025; 86803

== ENCOUNTER 2025-05-23 14:36 | Outpatient (REF) | payer MEDICAID, SELFPAY ==
[2025-05-23 16:29] LABS: Alanine Aminotransferase 16 U/L (0-31); Albumin Level 4.1 g/dL (3.5-5.0); Alkaline Phosphatase 136 U/L (39-117); Anion Gap 11 (12-20); Aspartate Amino Transferase 25 U/L (5-31); Blood Urea Nitrogen 13 mg/dL (9-16); Calcium 9.4 mg/dL (8.4-10.2); Carbon Dioxide 26 mmol/L (22-29); Chloride 107 mmol/L (96-108); Cholesterol 253 mg/dL (<200); Estimated Glomerular Filt Rate > 60; HDL Cholesterol 40 mg/dL (>40); Potassium 3.9 mmol/L (3.3-5.1); Sodium 140 mmol/L (135-145); Total Protein 7.8 g/dL (6.5-8.0); Triglycerides 234 mg/dL (<150)
[2025-05-24 08:04] LABS: HIV Num 1 0.05 S/CO (0.00-0.99)
== END 2025-05-23 14:37 | disposition home or self-care (01) ==
LOC: HO.HHCL 14:36
PROVIDERS: PCP General Practice; Visit Provider General Practice
DX: Z11.4 Encounter for screening for human immunodeficiency virus [HIV] (principal); H35.81 Retinal edema
CPT/HCPCS: 36415; 80053; 80061; 87389

== ENCOUNTER 2025-05-24 09:29 | Outpatient (REF) | payer MEDICAID, SELFPAY ==
--- NOTE | ~2025-05-24 | XR_ITS ---
EXAMINATION: XR FACIAL BONES CLINICAL INFORMATION: FALL COMPARISON: None available. TECHNIQUE: 3 views of the facial bones were obtained. FINDINGS: There are no fractures or dislocations. No bone, joint or soft tissue abnormality is demonstrated. Paranasal sinuses are clear. XR/XR facial bones <3V IMPRESSION: Unremarkable examination. Electronically signed by: Georgina Gonzales MD 05/24/2025 12:10 PM EDT RP
--- NOTE | ~2025-05-24 | XR_ITS ---
EXAMINATION: XR SACRUM COCCYX 2 OR MORE VIEWS HISTORY: FALL COMPARISON: There are no prior studies available for comparison. FINDINGS: Four views of the sacrum and coccyx are submitted. Osseous mineralization is normal. No fracture or lytic lesion is identified. XR/XR sacrum coccyx min 2V IMPRESSION: Unremarkable examination of the sacrum and coccyx Electronically signed by: Tristan Prajapati MD 05/24/2025 12:09 PM EDT
== END 2025-05-24 09:30 | disposition home or self-care (01) ==
LOC: HO.HHCX 09:29
PROVIDERS: Visit Provider General Practice
DX: H35.81 Retinal edema (principal)
CPT/HCPCS: 70140; 72220

== ENCOUNTER → 2025-05-24 09:57 | Outpatient (BNV) | payer MEDICAID, SELFPAY | PROVIDERS: Visit Provider Radiology Diagnostic Radiology | DX: H35.81 Retinal edema (principal) | CPT/HCPCS: 70140; 72220 ==